=== PATIENT | female | born 1970 | race Caucasian/White ===

== ENCOUNTER 2016-07-26 11:38 | Emergency (ER) | payer OTHER ==
[~2016-07-26] VITALS: Ht 157.5 cm; Wt 96.8 kg
[~2016-07-26 11:38] MED LIST: CIPRO500 MG PO; DEPAKOTE ER250 MG PO; ESCITALOPRAM OX20 MG PO; KEFLEX500 MG PO; MOTRIN800 MG PO; NAPROSYN500 MG PO; NORCO 5/3251 TABLET PO; PERCOCET 5/31 TABLET PO; ULTRACET1 TABLET PO; ZOFRAN4 MG PO
[2016-07-26 11:55] LABS: POINT-OF-CARE METER ID UU13113702
[2016-07-26 12:52] LABS: MCH 28.8 PG (29.0-34.0); MCHC 32.7 G/DL (30.0-36.0); MCV 88.1 FL (83-99); MEAN PLAT.VOLUME 12.2 uM^3 (9.5-12.4); PLATELET COUNT 146 K/uL (156-360); RBC DIS.WIDTH-CV 13.2 % (11.8-14.6); RBC DIS.WIDTH-SD 42.3 % (39-53); WHITE BLOOD COUNT 5.4 K/uL (4.1-10.2)
[2016-07-26 13:03] LABS: CHLORIDE 108 mEq/L (99-109); POTASSIUM 3.7 mEq/L (3.7-5.4); SODIUM 141 mEq/L (136-147)
[2016-07-26 13:04] LABS: GLUCOSE 93 mg/dL (70-99)
[2016-07-26 13:06] LABS: ANION GAP 11 MEQ/L (2-14)
[2016-07-26 13:08] LABS: GFR ESTIMATE (CALCULATED) > 59 mL/min/
[2016-07-26 13:09] LABS: UREA NITROGEN (BUN) 20 mg/dL (9-23)
[2016-07-26 13:15] LABS: TROP-I INTERPRETATION NEGATIVE; TROPONIN-I < 0.01 ng/mL (0.0-0.30)
[2016-07-26 16:37] VITALS: BP 179/78
== END 2016-07-26 16:38 | disposition home or self-care (01) ==
LOC: EME 11:38
PROVIDERS: Emergency Medicine
DX: R55 Syncope and collapse (principal); S00.01XA Abrasion of scalp, initial encounter; W19.XXXA Unspecified fall, initial encounter; Y93.9 Activity, unspecified; Y92.239 Unspecified place in hospital as the place of occurrence of the external cause; Y99.0 Civilian activity done for income or pay; F32.9 Major depressive disorder, single episode, unspecified; I10 Essential (primary) hypertension; Z88.0 Allergy status to penicillin; Z88.2 Allergy status to sulfonamides
CPT/HCPCS: 70450; 80048; 82948; 84484; 85027; 93005; 99281; 99285; J7030

== ENCOUNTER 2016-08-05 15:02 | Emergency (ER) | payer OTHER ==
[~2016-08-05] VITALS: Ht 157.5 cm; Wt 98.5 kg
[2016-08-05 16:40] LABS: HEMATOCRIT 40.6 % (36.0-46.0); MCH 29.7 PG (29.0-34.0); MCV 87.3 FL (83-99); MEAN PLAT.VOLUME 12.3 uM^3 (9.5-12.4); PLATELET COUNT 162 K/uL (156-360); RBC DIS.WIDTH-CV 13.3 % (11.8-14.6); RBC DIS.WIDTH-SD 42.1 % (39-53); RED BLOOD COUNT 4.65 M/uL (3.80-5.20); WHITE BLOOD COUNT 6.5 K/uL (4.1-10.2)
[2016-08-05] MEDS ORDERED: PRINIVIL10 MG PO (16:47)
[2016-08-05 16:56] LABS: CHLORIDE 106 mEq/L (99-109); POTASSIUM 3.8 mEq/L (3.7-5.4); SODIUM 140 mEq/L (136-147)
[2016-08-05 16:57] LABS: GLUCOSE 85 mg/dL (70-99)
[2016-08-05 16:59] LABS: ANION GAP 12 MEQ/L (2-14)
[2016-08-05 17:01] LABS: GFR ESTIMATE (CALCULATED) > 59 mL/min/
[2016-08-05 17:02] LABS: UREA NITROGEN (BUN) 24 mg/dL (9-23)
[2016-08-05 17:11] LABS: QUANTITATIVE HCG < 4.0 MIU/ML
[2016-08-05 18:13] LABS: TROP-I INTERPRETATION NEGATIVE; TROPONIN-I < 0.01 ng/mL (0.0-0.30)
[2016-08-05 19:07] LABS: TROP-I INTERPRETATION NEGATIVE; TROPONIN-I < 0.01 ng/mL (0.0-0.30)
[2016-08-05 19:20] VITALS: BP 184/79
== END 2016-08-05 19:20 | disposition home or self-care (01) ==
LOC: EME 15:02
PROVIDERS: Physician Assistant Medical
DX: R55 Syncope and collapse (principal); I10 Essential (primary) hypertension; Z87.442 Personal history of urinary calculi; R56.9 Unspecified convulsions
CPT/HCPCS: 71020; 80048; 84484; 84702; 85027; 93005; 99281; 99284